=== PATIENT | female | born 2000 | race Caucasian/White ===

== ENCOUNTER 2024-06-25 22:11 | Inpatient (IN) ==
[2024-06-25] MEDS: Oxytocin 10 UNITS/ML 1 ML VIAL IM ONE (23:09)
[2024-06-25] MEDS: Lidocaine 1% VIAL 10 MG/ML 30 ML VIAL INJ PRN (23:30)
[2024-06-25] MEDS ORDERED: RHO D Immune Globulin (HUMAN) 300 MCG = 1,500 I.U. INJ IM PRN (23:34)
[2024-06-26] MEDS: Witch Hazel PAD JAR TOPICAL PRN (00:23)
[2024-06-26] MEDS: Dibucaine 1% OINT 28.35 GM TUBE PR PRN (00:23)
[2024-06-26] MEDS ORDERED: Lidocaine 1% VIAL 10 MG/ML 30 ML VIAL ONE (03:29)
[2024-06-26 07:39] LABS: ABS Basophils 0.1 10^3/uL (0.0-0.1); ABS Lymphocytes 1.6 10^3/uL (1.0-4.8); ABS Monocytes 0.9 10^3/uL (0.0-0.9); ABS Neutrophils 10.8 10^3/uL (1.5-7.6); Eosinophil % 0.2 %; Hematocrit 34.7 % (35-45); Hemoglobin 12.1 g/dL (11.5-14.3); Lymphocyte % 12.3 %; Mean Corpuscular Hemoglobin 30.4 pg (27-33); Mean Platelet Volume 8.6 fL (7.5-11.2); Platelet Count 176 10^3/uL (150-450); Red Blood Count 3.98 10^6/uL (3.63-4.92); Red Cell Distribution Width 13.4 % (12-17); White Blood Count 13.4 10^3/uL (3.8-11.8)
[2024-06-26 13:33] LABS: Urine Benzodiazepine Screen None Detected (None Detect); Urine Cannabinoids Screen None Detected (None Detect); Urine Opiates Screen None Detected (None Detect)
[2024-06-27 08:30] VITALS: BP 118/67
[2024-06-27] MEDS: Measles, Mumps,Rubella VACC 0.5 ML/VIAL SUBCUT ONE (08:40)
== END 2024-06-27 14:00 | disposition home or self-care (01) | DRG 560 ==
LOC: MCHOBOUT 22:11 → MCHOB 22:42
PROVIDERS: ADMIT Midwife; ATTEND Midwife